=== PATIENT | female | born 1985 | race Caucasian/White ===

== ENCOUNTER 2023-03-04 02:22 | Day surgery (SDC) | payer BC, SELFPAY ==
[2023-03-03 16:06] VITALS: BMI 30.7
--- NOTE | 2023-03-03 16:11 | PC.NURSE ---
Report to the Outpatient Waiting Room, entrance under the green pavilion located off [facility], at time 1030 on date 03/04/23. Planned Procedure Time: 1230. Time changes happen often and if your time is changed the preop area will call you the afternoon before. - You and your visitor will be asked to self-screen and do not enter if you have any COVID symptoms. - A mask is optional within the hospital at this time. Patients may have clear liquids (water, carbonated beverages, clear teas, apple juice) until 3 hours prior to surgery with a maximum of 20 ounces. - No food from midnight until time of surgery Take the following medications with a SIP of water the morning of surgery: CONTROL DO NOT STOP ANY OF YOUR OTHER PRESCRIPTION MEDICATIONS PRIOR TO SURGERY ?EXCEPT THE FOLLOWING Medications to discontinue per physician: VITAMINS Date to take last dose: NO MORE UNTIL AFTER SURGERY Please no make-up, nail lithuanian, hairspray, perfume, deodorant, or body powder the day of surgery. No jewelry (including any body piercings) or valuables the day of surgery, leave them at home. Please take a shower or bath the night before, or the morning of, surgery with an antibacterial soap. Wear comfortable, loose fitting clothing. - Jewelry must be removed prior to entering the operating room. Rings and piercings that are not removed may be cut off. - The hospital will not accept responsibility for valuables. - Please leave all valuables, including medications, at home the day of surgery. If you are going home after surgery, a licensed pick up truck driver must drive you home. - NO public transportation without another adult if you receive anesthesia. - We recommend that an adult stay with you for 24 hours following discharge. - We also recommend that you do not drive, make important decision, drink alcoholic beverages, or take any drugs that were not prescribed by your health care provider for at least 24 hours after your discharge time. Follow any additional instructions given to you from your surgeon. If you or anyone in your household have experienced Covid symptoms in the past week, please notify your surgeon or the nurse liaison at the phone number below for possible testing. Telephone instructions given to PT - LITA HANNAH and asked if any additional questions and then verbalized understanding. Patient advised to call surgeon office or pre surgery nurse liaison [phone] if any additional questions.
[2023-03-04] VITALS (7 sets, daily range): BP systolic 97–133; BP diastolic 66–90; PULSE 67–85; RESP 14–16; TEMP 36.4–36.8; O2SAT 98–100
--- NOTE | ~2023-03-04 | XR_ITS ---
EXAMINATION: XR stent kub - surgery DATE: 03/04/2023 14:01 INDICATION: Left-sided renal stone extraction TECHNIQUE: Single fluoroscopic image of the pelvis and lower abdomen was obtained during procedure pe rformed by Dr. Chandler. Radiologist was not present for the imaging or procedure. The amount of fluoro scopy time used during this procedure was 0.2 minutes. COMPARISON: None. FINDINGS: Image demonstrates catheter extending to the bladder along the course of the left ureter and beyond t he cephalad margin of the [id number]. No stones identified. IMPRESSION: 1. Fluoroscopy utilized during urologic procedure. See procedure note for further detail. Reviewed, dictated and finalized at location A. IMPRESSION: 1. Fluoroscopy utilized during urologic procedure. See procedure note for furth er detail.
--- NOTE | 2023-03-04 06:24 | WPDHPUPDATE1 ---
History and Physical Update Update Date/Time: 03/04/23 06:24 History and Physical has been reviewed, including an updated exam of the patient. There are NO changes in the patient's condition. Risks, benefits, and alternatives have been discussed and questions answered. Patient agrees to proceed with procedure.
[2023-03-04] MEDS: LACTATED RINGERS 1,000 ML 30 ML IV CONT (12:27)
--- NOTE | 2023-03-04 12:29 | P.PNAN_ITS ---
Anes - Initial Pre Proc Eval Procedure: Operation Date: 03/04/23 12:30 Proposed Procedures p Cystoscopy, Left Ureteroscopy, Left Retrograde Pyelogram, Left Stone Extraction, Left Stent Exchange, Possible Holmium Laser - Jesse Chandler MD Date/Time: 03/04/23 12:29 Surgeon: Jesse Chandler MD Pre Op Diagnosis: ureteral Patient Data Age: 37 Gender: F Height: 1.68 m Weight: 86.2 kg Allergies Allergy/AdvReac Type Severity Reaction Status Date / Time prednisone Allergy Other Verified 03/04/23 12:07 Home Medications Medication Instructions Recorded Confirmed Type cyanocobalamin (vitamin B-12) 500 250 mcg PO DAILY 03/03/23 03/03/23 History mcg tablet ketorolac 10 mg tablet 10 mg PO Q6H PRN Pain 03/03/23 03/03/23 History norgestimate 0.25 mg-ethinyl 1 tablet PO DAILY 03/03/23 03/03/23 History estradiol 35 mcg tablet (Sprintec (28)) tamsulosin 0.4 mg capsule 0.4 mg PO DAILY 03/03/23 03/03/23 History Patient hx anesthesia problems: none Family hx anesthesia problems: none Results Review: All pre-operative results and documents have been reviewed as part of the pre- operative evaluation. [facility]LY [facility] Past Medical History Medical History (Updated 03/04/23 @ 12:29 by Robbin Russell MD) Obesity Renal stones Family History Family History Father Diabetes mellitus Mother Hypertension Social History Social History Smoking status: Never smoker Alcohol intake: current Alcohol use details: VERY RARE Substance use: never Substance use type: does not use Living arrangements: with family Spiritual care concerns: No Anes - Eval Final PreProcedure Day of Procedure 03/04/23 12:29 Patient weight: obese Heart: regular rate and rhythm Lungs: clear to auscultation Airway: Mallampati scale class II Neurological: alert and oriented Last oral intake: >/= 8 hours ASA classification: II Emergent: no Anesthetic plan: proceed Anesthesia type and monitoring: general LMA and standard monitoring Results Review: All pre-operative results and documents have been reviewed as part of the pre- operative evaluation. Informed Consent: The patient's anesthetic plan and its attendant risks and benefits were discussed with the patient/family/POA. Questions were solicited and answers provided to the satisfaction of the patient/family/POA.
--- NOTE | 2023-03-04 13:20 | WPDHPUPDATE1 ---
History and Physical Update Update Date/Time: 03/04/23 13:20 History and Physical has been reviewed, including an updated exam of the patient. There are NO changes in the patient's condition. Risks, benefits, and alternatives have been discussed and questions answered. Patient agrees to proceed with procedure.
[2023-03-04] MEDS: ceFAZolin 2 GM/D5W 50 ML 2 GM/50 ML BAG IVPB (13:35)
[2023-03-04] MEDS: LIDOCAINE HCL 2% GEL UROJET 10 ML PKG MUCOUS MEM (13:48)
[2023-03-04] MEDS: KETOROLAC 30 MG/ML VIAL (*BKC) IV PUSH (13:55)
--- NOTE | 2023-03-09 06:08 | W.PM.PROC2 ---
Procedure Note - Detailed Date of Procedure 03/09/23 Pre-op Diagnosis Left ureteral stone Post-op Diagnosis Same Procedure Performed Cystoscopy, left ureteroscopy with stone extraction Surgeon Jesse Chandler MD Anesthesia General Description of Procedure The patient was brought to the operative suite where she is prepped and draped in a routine sterile fashion while in the dorsal lithotomy position after the uneventful induction of a general LMA anesthetic. A 19F rigid cystoscope was placed in the bladder. The patient had no evidence of urethral stricture or bladder neck contracture. The bladder mucosa was endoscopically normal without hyperemia or neoplasm. There was a single, orthotopic ureteral orifice bilaterally. A 0.035 glidewire was advanced into the left renal pelvis under fluoroscopy. The distal ureter was dilated with an 8F/10F ureteral dilator. Ureteroscopy was undertaken with a short, tapered, semi-rigid ureteroscope and the stone was extracted with ease using a 1.9F Escape disposable stone basket. Due to the ease of this manipulation I opted not to place a ureteral stent. The patient's bladder was emptied and was taken to the recovery room having tolerated this procedure well. Drains No Packing No Pathology None sent Complications No immediate complications
== END 2023-03-04 15:28 | disposition home or self-care (01) ==
PROVIDERS: Visit Provider Urology
PROC: (CPT 52352; principal; 2023-03-04 12:30)
DX: N20.1 Calculus of ureter (principal); E66.9 Obesity, unspecified; Z68.30 Body mass index [BMI] 30.0-30.9, adult
CPT/HCPCS: 52352; 82365; 88300; C1769; J0690; J1100; J1885; J2250; J2405; J2704; J3010; J7120